=== PATIENT | male | born 1950 | race Hispanic/Latino ===

== ENCOUNTER 2024-02-16 09:38 | Day surgery (SDC) | payer OTHER ==
[2024-02-13 12:51] LABS: BASOPHILS # (AUTO) 0.05 K/uL (0.00-0.20); EOSINOPHILS % (AUTO) 6.1 % (0.0-8.0); HEMATOCRIT 43.8 % (42-54); IMMATURE GRANULOCYTE ABSOLUTE 0.03 K/uL (0-1); LYMPHOCYTES # (AUTO) 1.2 K/uL (1.0-4.8); LYMPHOCYTES % (AUTO) 23.9 % (21.0-51.0); MEAN CORPUSCULAR HEMOGLOBIN 30.6 pg (27.0-33.0); MEAN CORPUSCULAR HGB CONC 33.6 g/dL (32.0-36.0); MEAN CORPUSCULAR VOLUME 91.3 fL (79-99); MONOCYTES # (AUTO) 0.3 K/uL (0.1-1.0); MONOCYTES % (AUTO) 5.7 % (3.0-13.0); NEUTROPHILS # (AUTO) 3.1 K/uL (1.8-7.7); NEUTROPHILS % (AUTO) 62.7 % (40.0-77.0); PLATELET COUNT (AUTO) 264 K/uL (130-400); RED CELL DISTRIBUTION WIDTH 13.5 % (11.0-15.5); WHITE BLOOD COUNT (AUTO) 4.9 K/uL (4.8-10.8)
[2024-02-13 12:57] VITALS: BP 168/84; PULSE 96; RESP 18
[2024-02-13 12:59] LABS: CREATININE 1.2 mg/dL (0.5-1.3)
[2024-02-13 13:00] LABS: APPEARANCE,URINE CLEAR (CLEAR); BILIRUBIN,URINE NEGATIVE (NEGATIVE); COLOR,URINE YELLOW (YELLOW); GLUCOSE, URINE (UA) NEGATIVE (NEGATIVE); KETONES,URINE NEGATIVE (NEGATIVE); LEUKOCYTE ESTERASE ,URINE 75 Leu/uL (NEGATIVE); NITRATE,URINE NEGATIVE (NEGATIVE); OCCULT BLOOD,URINE NEGATIVE (NEGATIVE); PH,URINE 5.5 (5.0-8.0); PROTEIN,URINE 20 mg/dL (NEGATIVE); UROBILINOGEN,URINE 0.2 mg/dL (0.2-1.0)
[2024-02-13 13:05] LABS: ADD UA MICROSCOPIC YES
[2024-02-13 13:16] LABS: INR 0.96 (0.85-1.15); PROTHROMBIN TIME 11.4 SEC (9.6-11.6)
[2024-02-13 13:17] LABS: PARTIAL THROMBOPLASTIN TIME 29.6 SEC (26.3-35.5)
[2024-02-13 13:22] LABS: MUCUS,URINE RARE LPF (None Seen); SQUAMOUS EPITHELIAL CELL,UR RARE /HPF (0-2)
[2024-02-16] VITALS (20 sets, daily range): BP systolic 128–155; BP diastolic 65–81; PULSE 76–106; RESP 10–16
[~2024-02-16] VITALS: Ht 177.8 cm; Wt 103.9 kg
[~2024-02-16 09:38] MED LIST: ATOR40TA69 PO; ERGO500093 PO; GLIP10TA19 PO; HYDR-4064 PO
[2024-02-16] MEDS: CEFTRIAXONE 1G VIAL ONE (10:26)
[2024-02-16] MEDS: 0.9%NACL 1000ML 1,000 ML IV ONE (10:27)
[2024-02-16] MEDS ORDERED: FENTANYL CITRATE PF 50 MCG/1 ML 2ML VIAL ONE (12:05)
[2024-02-16] MEDS ORDERED: PROPOFOL 10 MG/ML 20ML VIAL IV ONE (12:05)
[2024-02-16] MEDS ORDERED: EPHEDRINE SULFATE 50 MG/ML AMPULE ONE (12:05)
[2024-02-16] MEDS ORDERED: SUCCINYLCHOLINE CHLORIDE 20 MG/ML 10 ML VIAL ONE (12:05)
[2024-02-16] MEDS ORDERED: ROCURONIUM BROMIDE 10MG/1ML 5ML VL ONE (12:05)
[2024-02-16] MEDS ORDERED: MIDAZOLAM HCL 1 MG/ML 2ML VIAL ONE (12:05)
[2024-02-16] MEDS ORDERED: LIDOCAINE PF 100MG/5ML (2%) SYRINGE 5ML ONE (12:08)
[2024-02-16] MEDS: CEFTRIAXONE 1G VIAL IVPB ONE (13:03)
[2024-02-16] MEDS ORDERED: ONDANSETRON 4MG INJ ONE (13:13)
[2024-02-16] MEDS ORDERED: DEXAMETHASONE SOD PHOSPHATE 10MG/ML 1ML VIAL ONE (13:13)
[2024-02-16] MEDS ORDERED: IOHEXOL-350 50ML VIAL IV ONE (15:25)
[2024-02-16] MEDS: KETOROLAC 15MG/ML VIAL (15MG/ML) ONE (16:34)
[2024-02-16] MEDS: ACETAMINOPHEN 1,000 MG/100 ML VIAL IV ONE (16:34)
[2024-02-16] MEDS ORDERED: BACITRACIN 1 EACH PACKET TP ONE (17:14)
== END 2024-02-16 17:40 | disposition home or self-care (01) ==
LOC: DAH 09:38
PROVIDERS: ATTEND Urology
DX: N13.2 Hydronephrosis with renal and ureteral calculous obstruction (principal); N21.0 Calculus in bladder; N32.0 Bladder-neck obstruction; E78.5 Hyperlipidemia, unspecified; E11.9 Type 2 diabetes mellitus without complications; Z79.899 Other long term (current) drug therapy; Z98.890 Other specified postprocedural states; Z79.01 Long term (current) use of anticoagulants; Z90.49 Acquired absence of other specified parts of digestive tract
CPT/HCPCS: 80048; 85025; 85610; 85730; 87088; 81001; 36415 ×2; 71045; 93005; 52317; 52351; 52332; 82948 ×2; 82360; 74420; A6260; A4663; J7120; A4354; C1758; C2617; Q9967 ×2; J3010; J1100; J0330; J7030; J3490 ×2; J2001; J0696 ×2; J2250; J2704; J2405; J1885; A4358; C1769 ×3; A4930; A4215; A4223; A4222; A4221; A4335; A4600

== ENCOUNTER → 2025-05-30 | Outpatient (CLI) | payer OTHER ==
[~2025-05-30] MED LIST changes: +GLIP-302 PO; -GLIP10TA19 PO
--- NOTE | 2025-05-31 08:19 | HMCIMG ---
EXAM: CT Cardiac calcium scoring. CLINICAL HISTORY: Screening. TECHNIQUE: Thin collimated axial CT cardiac images were obtained. A CT scan is done according to ALARA (As Low As Reasonably Achievable). CONTRAST: None. COMPARISON: None provided. FINDINGS: Calcium Score: VESSEL Number of lesions Volume mm3 Equi. Mass/mg Calcium score LM 5 152.0 - 191.9 LAD 10 527.8 - 714.3 LCX 5 106.9 - 138.1 RCA 5 166.3 - 231.1 Total 24 953.0 - 1275.4 IMPRESSION: The total calcium score is 1275.4. This corresponds to the 94th percentile. [place]
== END | disposition home or self-care (01) ==
LOC: RAH 14:45
PROVIDERS: ATTEND Internal Medicine Cardiovascular Disease
DX: Z13.6 Encounter for screening for cardiovascular disorders (principal)
CPT/HCPCS: 75571